=== PATIENT | male | born 1980 | race Native Hawaiian/Other Pacific Islander ===

== ENCOUNTER 2018-02-15 02:25 | Emergency (ER) | payer SELFPAY ==
[2018-02-15] MEDS ORDERED: ONDANSETRON HCL/PF 4 MG/ 2ML VIAL ONE (02:32)
--- NOTE | 2018-02-15 02:32 | ED Physician Documentation ---
Abdominal Pain - HISTORIAN Historian: patient - HPI Stated Complaint: abdominal pain Chief Complaint: Abdominal Pain Onset: hours (7) Duration: constant Timing: still present Context: denies: out of country travel, bad food, recent trauma Quality: pain, aching, burning, sharp Associated Symptoms: nausea, vomiting, other (constipation ). denies: coffee ground emesis, bloody emesis, diarrhea, bloody stools, grossly bloody stools Exacerbated by: nothing Relieved by: nothing Further Comments: yes (he states yesterday he started with RUQ pain and has had this pain, nausea and vomiting. Burning with urination starting 3 days ago. He states he has not had a bowel movement 2 days ago. He states that the pain is constant. He denies fever.) - ROS CONST: no problems GI/: constipation, problems urinating (burning ). denies: black stools, bloody urine, bloody stools, dark urine CVS/RESP: denies: palpitations, shortness of breath, hurts to breath, cough NEURO/PSYCH: denies: headache, dizziness, light-headedness, anxiety, depression - SOCIAL HX Smoking History: non-smoker Alcohol Use: none Drug Use: none - FAMILY HX Family History: none - PAST HX Past History: none Other History: none Surgeries/Procedures: none Immunizations: UTD Home Medications: Ambulatory Orders Medication Instructions Recorded NK [NK] 02/15/18 Allergies/Adverse Reactions: Allergies Allergy/AdvReac Type Severity Reaction Status Date / Time No Known Allergies Allergy Verified 02/15/18 03:15 - VITAL SIGNS Vital Signs: Vital Signs Temp Pulse Resp BP Pulse Ox 98.2 F 63 16 129/74 98 02/15/18 02:28 02/15/18 02:28 02/15/18 02:28 02/15/18 02:28 02/15/18 02:28 - REVIEWED ASSESSMENTS Nursing Assessment Reviewed: Yes Vitals Reviewed: Yes Progress - Progress Progress: 0355: resting quietly. No further nausea at this time. Pain is improved. DG ED Results Lab/Radiology - Lab Results Lab Results: Lab Results 02/15/18 02/15/18 02/15/18 03:02 03:02 03:01 WBC 8.30 K/ul K/ul (4.00-12.00) RBC 4.73 M/ul M/ul (3.90-5.20) Hgb 15.0 g/dL g/dL (12.0-18.0) Hct 42.5 % % (37.0-53.0) MCV 89.9 fl fl (80.0-100.0) MCH 31.7 pg pg (28.0-34.0) MCHC 35.2 g/dL g/dL (30.0-36.0) RDW 12.4 % % (11.3-14.3) Plt Count 222 K/mm3 K/mm3 (130-400) Neut % (Auto) 73.4 % % (39.0-79.0) Lymph % (Auto) 16.9 % % (16.0-50.0) Boyd % (Auto) 5.3 % % (0.0-11.0) Eos % (Auto) 1.8 % % (0.0-6.8) Baso % (Auto) 0.7 (0.0-1.5) Neut # (Auto) 6.1 # k/uL # k/uL (1.4-7.7) Lymph # (Auto) 1.4 # k/uL # k/uL (0.6-4.0) Boyd # (Auto) 0.4 # k/uL # k/uL (0.0-0.9) Eos # (Auto) 0.2 # k/uL # k/uL (0.0-0.6) Baso # (Auto) 0.1 # k/uL # k/uL (0.0-0.5) Reactive Lymphs % 1.9 % % (0.0-5.0) Reactive Lymphs # 0.2 # k/uL # k/uL (0.0-0.8) Sodium 142 mmol/L mmol/L (136-145) Potassium 3.4 mmol/L L mmol/L (3.5-5.1) Chloride 102 mmol/L mmol/L (98-107) Carbon Dioxide 27 mmol/L mmol/L (22-30) BUN 12 mg/dL mg/dL (9-20) Creatinine 0.70 mg/dL mg/dL (0.66-1.25) Estimated Creat Clear 205 Est GFR ( Amer) > 60 (60 - ) Est GFR (Non-Af Amer) > 60 (60 - ) Glucose 103 mg/dL mg/dL (74-106) Calcium 8.5 mg/dL mg/dL (8.4-10.2) Total Bilirubin 0.9 mg/dL mg/dL (0.2-1.3) AST 110 U/L H U/L (15-46) ALT 186 U/L H U/L (13-69) Alkaline Phosphatase 75 U/L U/L (38-126) Total Protein 7.2 g/dL g/dL (6.3-8.2) Albumin 3.7 g/dL g/dL (3.5-5.0) Lipase 136 U/L U/L (23-300) - Radiology Radiology Impressions: CT abdomen and pelvis without contrast Date of study: February 15, 2018 CLINICAL HISTORY: PT STATES RUQ PAIN AND EMESIS X 1 DAY (Hx) TECHNIQUE: 5 mm contiguous axial images of the abdomen and pelvis non contrast. FINDINGS: The lung bases are clear. Abdomen: The liver, pancreas and spleen are normal in appearance. The gallbladder is distended with gallstones. \ The kidneys are normal in size and surface contour. There is no evidence of renal or ureteral calculi identified. No hydronephrosis or perinephric stranding is evident. The aorta is normal in caliber. The small bowel is nondistended. There is no evidence of free air or free fluid. An umbilical l hernia contains only fat Pelvis: The colon is normal in appearance. The distal ureters and bladder are normal in appearance. There is no evidence of distal ureteral or intravesicular calculi. . There is no evidence of free air or free fluid. The sigmoid colon and rectum are normal. The remaining pelvic structures are within normal limits and the bones of the pelvis are intact. There is a normal appendix. IMPRESSION: Gallstones and distended gallbladder. Suggest gallbladder ultrasound Electronically signed on Feb 15, 2018 3:45:46 AM CDT by: Jaiden Martin - Orders Orders: ED Orders Category Date Time Status CT ABD & PELVIS W/O CON Stat Exams 02/15/18 Ordered CBC/PLATELET/DIFF Routine Lab 02/15/18 03:02 Completed CMP Routine Lab 02/15/18 03:02 Completed LIPASE Stat Lab 02/15/18 03:01 Completed 0.9 % Sodium Chloride [Normal Saline] 1,000 ml Med 02/15/18 03:20 Active IV Q1H 0.9 % Sodium Chloride [Normal Saline] 1,000 ml Med 02/15/18 03:31 Active IV Q1H Ketorolac Tromethamine [Toradol] Med 02/15/18 02:36 Discontinued 30 mg IVP NOW ONE Ondansetron HCl/Pf [Zofran 4 mg/2 ml] Med 02/15/18 02:32 Discontinued 4 mg .ROUTE .STK-MED ONE Promethazine HCl [Phenergan] Med 02/15/18 02:41 Discontinued 25 mg .ROUTE .STK-MED ONE Promethazine HCl [Phenergan] 25 mg Med 02/15/18 02:36 Discontinued 0.9 % Sodium Chloride [Sodium Chloride] 50 ml IV NOW Abdominal Pain Physical Exam - Physical Exam General Appearance: no acute distress, alert EENT: eye inspection normal RESPIRATORY: no resp distress, chest non-tender, breath sounds normal CVS: reg rate & rhythm, heart sounds normal, equal pulses, no murmur ABDOMEN: soft, normal bowel sounds, no distension, tenderness (RUQ and epigastric area ) SKIN: warm/dry, normal color EXTREMITIES: non-tender, normal range of motion, no evidence of injury, no edema NEURO: oriented X3, CN's nml as tested, motor nml, sensation nml, mood/affect nml Vital Signs: Vital Signs Temp Pulse Resp BP Pulse Ox 98.2 F 63 16 129/74 98 02/15/18 02:28 02/15/18 02:28 02/15/18 02:28 02/15/18 02:28 02/15/18 02:28 Discharge Clincal Impression: Cholelithiasis Qualifiers: Cholelithiasis location: gallbladder Cholecystitis presence: without cholecystitis Biliary obstruction: without biliary obstruction Qualified Code(s) : K80.20 - Calculus of gallbladder without cholecystitis without obstruction Comments: 1. [place] diet 2. Phenergan 25 mg Take 1 by mouth every 8 hours as needed for nausea 3. Hydorcodone 5/325 Take 1 by mouth every 6 hours as needed for pain 4. See PCP Saturday 5. return to ER for any concerns Condition: Stable Disposition: 01 HOME, SELF-CARE Decision to Admit: NO Date of Decison to Admit: 02/15/18 Decision Time: 04:01
[2018-02-15] MEDS ORDERED: KETOROLAC TROMETHAMINE 30 MG/1ML VIAL IVP ONE (02:36)
[2018-02-15] MEDS ORDERED: PROMETHAZINE HCL 25 MG in 0.9 % SODIUM CHLORIDE 50 ML IV ONE (02:36)
[2018-02-15] MEDS ORDERED: PROMETHAZINE HCL 25 MG/ML VIAL ONE (02:41)
[2018-02-15 03:07] LABS: BASOPHILS % 0.7 (0.0-1.5); EOSINOPHILS % 1.8 % (0.0-6.8); MEAN CORPUSCULAR HEMOGLOBIN 31.7 pg (28.0-34.0); MEAN CORPUSCULAR VOLUME 89.9 fl (80.0-100.0); MONOCYTES % 5.3 % (0.0-11.0); NEUTROPHILS # 6.1 # k/uL (1.4-7.7)
[2018-02-15] MEDS ORDERED: 0.9 % SODIUM CHLORIDE 1,000 ML IV ONE ×2 (03:20→03:31)
[2018-02-15 03:21] LABS: eGFR (African) > 60; eGFR (Non-African) > 60
[2018-02-15 04:36] VITALS: BP 103/61
--- NOTE | 2018-02-16 06:56 | Diagnostic Imaging Report ---
MAG WOODS [facility] [address] [facility] [address] [place], [place]. [address] Report Submission Date: Feb 15, 2018 3:45:46 AM CDT Patient Study Name: JOSUÉ CHU Date: Feb 15, 2018 3:13:44 AM CDT Modality Type: CT\SR Gender: M Description: CT A/P W/O CONTRAST : 84 Institution: [facility] Physician: MAG WOODS CT abdomen and pelvis without contrast Date of study: February 15, 2018 CLINICAL HISTORY: PT STATES RUQ PAIN AND EMESIS X 1 DAY (Hx) TECHNIQUE: 5 mm contiguous axial images of the abdomen and pelvis non contrast. FINDINGS: The lung bases are clear. Abdomen: The liver, pancreas and spleen are normal in appearance. The gallbladder is distended with gallstones. \ The kidneys are normal in size and surface contour. There is no evidence of renal or ureteral calculi identified. No hydronephrosis or perinephric stranding is evident. The aorta is normal in caliber. The small bowel is nondistended. There is no evidence of free air or free fluid. An umbilical l hernia contains only fat Pelvis: The colon is normal in appearance. The distal ureters and bladder are normal in appearance. There is no evidence of distal ureteral or intravesicular calculi. . There is no evidence of free air or free fluid. The sigmoid colon and rectum are normal. The remaining pelvic structures are within normal limits and the bones of the pelvis are intact. There is a normal appendix. IMPRESSION: Gallstones and distended gallbladder. Suggest gallbladder ultrasound Electronically signed on Feb 15, 2018 3:45:46 AM CDT by: Jaiden Martin [facility] DIVISIONKrunal
== END 2018-02-15 04:12 | disposition home or self-care (01) ==
LOC: ED 02:25
DX: K80.20 Calculus of gallbladder without cholecystitis without obstruction (principal)
CPT/HCPCS: 74176; 80053; 83690; 85025; J1885; J2550; J7030; 96365; 96375; 99283